=== PATIENT | female | born 1940 | race Caucasian/White ===

== ENCOUNTER 2016-09-12 15:57 | Outpatient (CLI) | payer MEDICARE, MEDICAID ==
[2016-09-12 16:24] VITALS: BP 113/70
== END 2016-09-12 16:35 | disposition home or self-care (01) ==
LOC: KA.IVTHER 15:57
PROVIDERS: ATTEND Internal Medicine Hematology & Oncology
DX: C56.9 Malignant neoplasm of unspecified ovary (principal); D70.1 Agranulocytosis secondary to cancer chemotherapy; T45.1X5A Adverse effect of antineoplastic and immunosuppressive drugs, initial encounter
CPT/HCPCS: 96372; J2505

== ENCOUNTER 2017-10-28 11:58 | Inpatient (IN) | payer MEDICARE, MEDICAID ==
[2017-10-28] MEDS ORDERED: Sodium Polystyrene Sulfonate 15 GM/60 ML Susp 60 ML Bot PO ONE (12:36)
[2017-10-28] MEDS ORDERED: Sodium Chloride 0.9% 1,000 ML ONE (12:49)
[2017-10-28] MEDS ORDERED: Ondansetron 4 MG Tab.DIS PO PRN (13:21)
[2017-10-28] MEDS ORDERED: Sodium Chloride 0.9% 1,000 ML IV SCH ×2 (13:30→13:53)
[2017-10-28] MEDS: Sodium Chloride 0.9% 1,000 ML IV SCH (14:54)
[2017-10-29] MEDS: Sodium Chloride 0.9% 1,000 ML IV SCH ×2 (01:39→20:28)
[2017-10-29] MEDS: Omeprazole 20 MG Cap.CR PO SCH (08:05)
[2017-10-29] MEDS: Levothyroxine 75 MCG Tab PO SCH (08:05)
[2017-10-29] MEDS ORDERED: predniSONE 5 MG Tab PO SCH (09:00)
[2017-10-29] MEDS ORDERED: Levothyroxine 75 MCG Tab PO SCH (09:00)
--- NOTE | 2017-10-29 09:52 | PCM.HP ---
H&P History of Present Illness - General Date of Service: 10/29/17 Admit Problem/Dx: Admission Diagnosis/Problem Admission Diagnosis/Problem Hyperkalemia Source of Information: Family, Old Records, Provider, RN History Limitations: Reports: No Limitations - History of Present Illness Initial Comments - Free Text/Narative: 77-year-old female who suffers from stage IV metastatic adenocarcinoma/terminal ovarian CA and is no longer taking chemotherapy is being followed closely by oncologist was admitted yesterday due to dehydration and electrolyte disturbance. Patient recently underwent paracentesis diagnosed on 09/03/2016 she initially refused placement of PleuRx catheter. She was seen yesterday by oncologist and recommended admission due to hyperkalemia, weakness and dehydration. has opted for palliative care as she is a DO NOT RESUSCITATE Left Feet Pain Score (Numeric/FACES): 8 - Related Data Allergies/Adverse Reactions: Allergies Allergy/AdvReac Type Severity Reaction Status Date / Time Penicillins Allergy Hives Verified 10/28/17 12:28 Home Medications: Home Meds Levothyroxine Sodium [Synthroid] 75 mcg PO DAILY 09/12/16 [History] Ondansetron [Zofran Odt] 8 mg PO TID PRN 10/08/16 [History] Omeprazole 20 mg PO DAILY 11/12/16 [History] Magnesium Chloride [Mag-64] 64 mg PO DAILY 04/08/17 [History] Dicyclomine [Bentyl] 10 - 20 mg PO QID PRN 10/08/17 [History] Furosemide [Lasix] 20 mg PO DAILY 10/08/17 [History] Polyethylene Glycol 3350 [MiraLAX] 17 gm PO DAILY PRN 10/08/17 [History] Prednisone [IJD: Prednisone] 5 mg PO DAILY 10/08/17 [History] Past Medical History HEENT History: Reports: Impaired Vision Cardiovascular History: Reports: Hypertension Gastrointestinal History: Reports: Colon Polyp, GERD Genitourinary History: Reports: None 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: Musculoskeletal History: Reports: None Endocrine/Metabolic History: Reports: Hypothyroidism Immunologic History: Reports: Immunosuppression Oncologic (Cancer) History: Reports: Ovarian - Infectious Disease History Infectious Disease History: Reports: Chicken Pox, Meningitis - Past Surgical History Cardiovascular Surgical History: Reports: None GI Surgical History: Reports: Colonoscopy Female Surgical History: Reports: None Endocrine Surgical History: Reports: None Musculoskeletal Surgical History: Reports: None Social & Family History - Family History HEENT: Reports: None Cardiac: Reports: Hypertension, Other (See Below) Other Cardiac Family History: Mother of heart disease also had hypertension Respiratory: Reports: None GI: Reports: Other (See Below) (Father however had ulcers) : Reports: None OBGYN: Reports: None Musculoskeletal: Reports: None Neurological: Reports: None, Seizure (Brother with seizure disorder) Psychiatric: Reports: None Endocrine/Metabolic: Reports: None Oncologic: Reports: Leukemia (Sr. of leukemia) - Tobacco Use Smoking Status *Q: Current Some Day Smoker Years of Tobacco use: 50 Packs/Tins Daily: 0 - Caffeine Use Caffeine Use: Reports: None - Recreational Drug Use Recreational Drug Use: No H&P Review of Systems - Review of Systems: Review Of Systems: See Below General: Reports: Malaise, Weakness. Denies: Fever, Night Sweats, Decreased Appetite HEENT: Denies: Vertigo Pulmonary: Denies: Shortness of Breath, Wheezing, Pleuritic Chest Pain, Cough Cardiovascular: Reports: Edema (Bilateral lower extremities edematous). Denies : Chest Pain Gastrointestinal: Reports: Diarrhea (Diarrhea last night likely due to Kayexalate). Denies: Abdominal Pain Genitourinary: Denies: Dysuria, Hematuria, Flank Pain Musculoskeletal: Reports: Foot Pain (Right foot pain and swollen and tender), Joint Pain, Joint Swelling Skin: Reports: No Symptoms Psychiatric: Denies: Confusion Neurological: Reports: Difficulty Walking (Difficult ambulation due to right foot pain), Gait Disturbance. Denies: Confusion Hematologic/Lymphatic: Reports: Anemia, Easy Bleeding Immunologic: Reports: No Symptoms Exam - Exam Exam: See Below - Vital Signs Vital Signs: Last Vital Signs Temp 98.3 F 10/29/17 06:01 Pulse 98 10/29/17 06:01 Resp 20 10/29/17 06:01 BP 87/56 L 10/29/17 06:01 Pulse Ox 94 L 10/29/17 06:01 Weight: 108 lb 3.2 oz - Exam Quality Assessment: No: Supplemental Oxygen General: Alert, Oriented, Cooperative. No: Mild Distress HEENT: Nares Patent Neck: No: JVD Lungs: Clear to Auscultation, Normal Respiratory Effort Cardiovascular: Regular Rate, Regular Rhythm GI/Abdominal Exam: Distended Back Exam: No: CVA Tenderness (L), CVA Tenderness (R) Extremities: Pedal Edema, Increased Warmth (Right first metatarsal painful swollen), Redness Neurological: Cranial Nerves Intact Neuro Extensive - Motor, Sensory, Reflexes: CN II-XII Intact Psychiatric: Alert, Normal Affect, Normal Mood - Patient Data Lab Results Last 24 hrs: Laboratory Results - last 24 hr 10/29/17 10/29/17 10/29/17 Range/Units 07:20 07:20 07:20 WBC 15.3 H (5.0-10.0) 10^3/uL RBC 3.00 L (3.80-5.50) 10^6/uL Hgb 9.0 L D (12.0-16.0) g/dL Hct 29.2 L (37.0-47.0) % MCV 97.6 H (82.0-92.0) fL MCH 30.2 (27.0-31.0) pg MCHC 30.9 L (32.0-36.0) g/dL RDW 20.3 H (11.5-14.5) % Plt Count 140 L D (150-300) 10^3/uL MPV 9.7 (7.4-10.4) fL Neut % (Auto) 84.6 H (50.0-70.0) % Lymph % (Auto) 3.9 L (20.0-40.0) % [place] % (Auto) 10.9 H (2.0-8.0) % Eos % (Auto) 0.2 L (1.0-3.0) % Baso % (Auto) 0.4 (0.0-1.0) % Neut # (Auto) 12.9 H (2.5-7.0) 10^3/uL Lymph # (Auto) 0.6 L (1.0-4.0) 10^3/uL [place] # (Auto) 1.7 H (0.1-0.8) 10^3/uL Eos # (Auto) 0.0 L (0.1-0.3) 10^3/uL Baso # (Auto) 0.1 (0.0-0.1) 10^3/uL Sodium 136 (136-145) mmol/L Potassium 5.3 (3.3-5.3) mmol/L Chloride 105 (98-115) mmol/L Carbon Dioxide 17.9 L (21.0-32.0) mmol/L BUN 71 H* (6-25) mg/dL Creatinine 2.19 H (0.51-1.17) mg/dL Est Cr Clr Drug Dosing 16.14 mL/min Estimated GFR (MDRD) 22 mL/min Glucose 96 (70-110) mg/dL Uric Acid 18.9 H (2.6-7.2) mg/dL Calcium 7.7 L (8.7-10.3) mg/dL Result Diagrams: 10/29/17 07:20 10/29/17 07:20 Problem List Initiated/Reviewed/Updated: Yes Orders Last 24hrs: Active Orders 24 hr Category Date Time Status Patient Status [ADT] Routine ADT 10/28/17 12:10 Ordered Oxygen Therapy [RC] PRN Care 10/28/17 12:31 Active Up ad Guerda [RC] ASDIRECTED Care 10/28/17 12:30 Active VTE/DVT Education [RC] PER UNIT ROUTINE Care 10/28/17 12:31 Active Vital Signs [RC] 0300,0700,1100,1500,1900,2300 Care 10/28/17 12:31 Active Consult to Physical Therapy [PT Evaluation and Cons 10/29/17 08:52 Active Treatment] [CONS] Routine Regular Diet [DIET] Diet 10/28/17 Lunch Active Levothyroxine Med 10/29/17 07:30 Active 75 mcg PO ACBREAKFAST Magnesium Chloride [Mag-64] Med 10/29/17 12:00 Active 64 mg PO 1200 Omeprazole Med 10/29/17 09:00 Active 20 mg PO DAILY Ondansetron [Zofran ODT] Med 10/28/17 13:21 Active 8 mg PO TID PRN Polyethylene Glycol 3350 [MiraLAX] Med 10/28/17 13:21 Active 17 gm PO DAILY PRN Sodium Chloride 0.9% [Normal Saline] 1,000 ml Med 10/28/17 12:45 Active IV ASDIRECTED predniSONE Med 10/29/17 09:00 Active 5 mg PO DAILY Resuscitation Status Routine Resus Stat 10/28/17 12:30 Ordered Medication Orders Sodium Chloride (Normal Saline) 1,000 mls @ 70 mls/hr IV ASDIRECTED [facility] Last Admin: 10/29/17 01:39 Dose: 70 mls/hr Infusion: 10/29/17 01:39 Dose: 70 mls/hr Admin: 10/28/17 14:54 Dose: 70 mls/hr Levothyroxine Sodium (Levothyroxine) 75 mcg PO ACBREAKFAST [facility] Last Admin: 10/29/17 08:05 Dose: 75 mcg Magnesium Chloride (Mag-64) 64 mg PO 1200 THU Omeprazole (Omeprazole) 20 mg PO DAILY [facility] Last Admin: 10/29/17 08:05 Dose: 20 mg Ondansetron HCl (Zofran Odt) 8 mg PO TID PRN PRN Reason: Nausea Polyethylene Glycol (Miralax) 17 gm PO DAILY PRN PRN Reason: Constipation Prednisone (Prednisone) 5 mg PO DAILY [facility] Last Admin: 10/29/17 08:05 Dose: 5 mg Assessment/Plan Comment:: HISTORY OF PRESENT ILLNESS 77-year-old female who suffers from stage IV metastatic adenocarcinoma/terminal ovarian CA (diagnosed 08/2016) --no longer taking chemotherapy and has being followed closely by oncologist was admitted yesterday due to dehydration, weakness and electrolyte disturbance mainly hyperkalemia. Patient recently underwent therapeutic paracentesis as she initially refused placement of PleuRx catheter. As of recent she and family has opted for palliative care as she is a DO NOT RESUSCITATE and no longer taking chemotherapy. Impression Gouty arthropathy, right foot, uric acid level elevated at 18, possibly due to loop diuretics and/or chemotherapy related, 40 mg of prednisone today and will likely taper thereafter. May benefit from renal dose allopurinol\--will order despite acute Hyperkalemia, improved however upper normal limit. Kayexalate 1x again today. Forego Tele. Renal insufficiency/Dehydration, prerenal, no ability to asses fraction excreted Na, continue with fluids, however bolus again today, taking by mouth also Weakness, PT consultation. Limited exam likely 2/2 gouty condition Anemia, microcytic, anisocytosis, ACD/chemo induced. Other chronic medical conditions HTN HLD Hypothyroidism Smoker with relapses Overall Plan. Cont acute care status, patient likely will request discharge to home soon despite family concerns, PT to eval today if all possible for assistence in developing overall plan. Family concerns regarding their inability to care for ADS, bathing, toileting needs that are sure to come soon. Social Service C/S. Discussed options i.e. private pay hospice in hosp. Swing Bed if qualifying stay, , Home Hospice however family concerns regarding limited home visits.
[2017-10-29] MEDS ORDERED: Acetaminophen/HYDROcodone 325-5 MG Tab PO PRN (10:00)
[2017-10-29] MEDS ORDERED: Sodium Polystyrene Sulfonate 15 GM/60 ML Susp 60 ML Bot PO ONE (10:00)
[2017-10-29] MEDS: Allopurinol 100 MG Tab PO SCH (11:15)
[2017-10-29] MEDS ORDERED: predniSONE 20 MG Tab PO ONE (12:00)
[2017-10-29] MEDS: Magnesium Chloride 64 MG Tab.ER PO SCH (18:14)
[2017-10-29] MEDS ORDERED: Acetaminophen 325 MG Tab PO PRN (20:31)
[2017-10-30] MEDS: Allopurinol 100 MG Tab PO SCH (08:17)
[2017-10-30] MEDS: Levothyroxine 75 MCG Tab PO SCH (08:17)
[2017-10-30] MEDS: Omeprazole 20 MG Cap.CR PO SCH (08:17)
[2017-10-30] MEDS: Sodium Chloride 0.9% 1,000 ML IV SCH ×2 (11:00→22:54)
[2017-10-30] MEDS ORDERED: oxyCODONE 5 MG Tab PO PRN (12:31)
[2017-10-30] MEDS: Magnesium Chloride 64 MG Tab.ER PO SCH (12:54)
[2017-10-30] MEDS: Polyethylene Glycol 3350 Powder 17 GM Packet PO PRN (14:59)
[2017-10-30] MEDS ORDERED: 20% Ketoprofen 12 GM, 3% Menthol 1.8 GM & 8% Trolamine Salicylate 46.2 GM TOP SCH ×3 (18:00)
[2017-10-30] MEDS ORDERED: Ceres/Mineral Oil/Petrolatum/Wool Alcohol Cream 57 GM Tube TOP PRN (18:11)
[2017-10-30] MEDS ORDERED: 20% Ketoprofen 12 GM, 3% Menthol 1.8 GM & 8% Trolamine Salicylate 46.2 GM TOP PRN ×3 (18:15)
--- NOTE | 2017-10-30 21:27 | PCM.PN ---
- General Info Date of Service: 10/30/17 Subjective Update: Ms. Moreno reports feeling "OK" this morning. Improvement in foot pain since yesterday. Abdominal distension moderate without significant respiratory difficulty or abdominal pain. She describes mood as frustrated about the cancer. Feels she is drinking fluids well today. Sons at bedside without any concerns today. No nursing concerns. - Patient Data Vitals - Most Recent: Last Vital Signs Temp 36.7 C 10/30/17 15:00 Pulse 99 10/30/17 15:00 Resp 18 10/30/17 15:00 BP 85/55 L 10/30/17 15:00 Pulse Ox 98 10/30/17 15:00 Weight - Most Recent: 49.079 kg I&O - Last 24 Hours: Intake & Output 10/30/17 10/30/17 10/30/17 06:59 14:59 22:59 Intake Total 1004 1230 Output Total 300 450 Balance 704 780 Lab Results Last 24 Hours: Laboratory Results - last 24 hr 10/30/17 10/30/17 Range/Units 07:10 07:10 WBC 14.9 H (5.0-10.0) 10^3/uL RBC 2.74 L (3.80-5.50) 10^6/uL Hgb 8.2 L (12.0-16.0) g/dL Hct 27.2 L (37.0-47.0) % MCV 99.2 H (82.0-92.0) fL MCH 29.9 (27.0-31.0) pg MCHC 30.1 L (32.0-36.0) g/dL RDW 21.8 H (11.5-14.5) % Plt Count 127 L (150-300) 10^3/uL MPV 9.8 (7.4-10.4) fL Neut % (Auto) 88.4 H (50.0-70.0) % Lymph % (Auto) 2.8 L (20.0-40.0) % [place] % (Auto) 8.6 H (2.0-8.0) % Eos % (Auto) 0.2 L (1.0-3.0) % Baso % (Auto) 0.0 (0.0-1.0) % Neut # (Auto) 13.2 H (2.5-7.0) 10^3/uL Lymph # (Auto) 0.4 L (1.0-4.0) 10^3/uL [place] # (Auto) 1.3 H (0.1-0.8) 10^3/uL Eos # (Auto) 0.0 L (0.1-0.3) 10^3/uL Baso # (Auto) 0.0 (0.0-0.1) 10^3/uL Sodium 136 (136-145) mmol/L Potassium 4.7 (3.3-5.3) mmol/L Chloride 106 (98-115) mmol/L Carbon Dioxide 17.9 L (21.0-32.0) mmol/L BUN 65 H* (6-25) mg/dL Creatinine 2.07 H (0.51-1.17) mg/dL Est Cr Clr Drug Dosing 17.07 mL/min Estimated GFR (MDRD) 23 mL/min Glucose 106 (70-110) mg/dL Calcium 7.5 L (8.7-10.3) mg/dL Total Bilirubin 0.3 (0.2-1.0) mg/dL AST 43 H (15-37) U/L ALT 29 (12-78) U/L Alkaline Phosphatase 233 H (46-116) IU/L Total Protein 4.5 L (6.4-8.2) g/dL Albumin 1.56 L (3.00-4.80) g/dL Med Orders - Current: Current Medications Acetaminophen (Tylenol) 650 mg PO Q4H PRN PRN Reason: pain or fever Last Admin: 10/29/17 21:13 Dose: 650 mg Allopurinol (Zyloprim) 200 mg PO DAILY [facility] Last Admin: 10/30/17 08:17 Dose: 200 mg Ketoprofen 12 gm/ Menthol 1.8 gm/ Trolamine Salicylate 46.2 gm 0 gm TOP BID PRN PRN Reason: itching Last Admin: 10/30/17 18:30 Dose: 1 lynda Sodium Chloride (Normal Saline) 1,000 mls @ 70 mls/hr IV ASDIRECTED [facility] Last Admin: 10/30/17 11:00 Dose: 70 mls/hr Levothyroxine Sodium (Levothyroxine) 75 mcg PO ACBREAKFAST [facility] Last Admin: 10/30/17 08:17 Dose: 75 mcg Magnesium Chloride (Mag-64) 64 mg PO 1200 THU Last Admin: 10/30/17 12:54 Dose: 64 mg Multi-Ingredient Ointment (Eucerin Creme) 0 gm TOP BID PRN PRN Reason: itching Last Admin: 10/30/17 18:30 Dose: 1 applic Omeprazole (Omeprazole) 20 mg PO ACBREAKFAST [facility] Ondansetron HCl (Zofran Odt) 8 mg PO TID PRN PRN Reason: Nausea Last Admin: 10/29/17 12:43 Dose: 8 mg Oxycodone HCl (Oxycodone) 5 mg PO Q4H PRN PRN Reason: Pain Last Admin: 10/30/17 14:52 Dose: 5 mg Polyethylene Glycol (Miralax) 17 gm PO DAILY PRN PRN Reason: Constipation Last Admin: 10/30/17 14:59 Dose: 17 gm Prednisone (Prednisone) 5 mg PO DAILY [facility] Last Admin: 10/29/17 08:05 Dose: 5 mg Discontinued Medications Hydrocodone Bitart/Acetaminophen ([place] 325-5 Mg) 1 tab PO Q3H PRN PRN Reason: Pain Last Admin: 10/29/17 11:02 Dose: 1 tab Ketoprofen 12 gm/ Menthol 1.8 gm/ Trolamine Salicylate 46.2 gm 0 gm TOP BID [facility] Last Admin: 10/30/17 18:29 Dose: Not Given Sodium Chloride (Normal Saline) Confirm Administered Dose 1,000 mls @ as directed .ROUTE .STK-MED ONE Stop: 10/28/17 12:50 Last Admin: 10/28/17 13:46 Dose: Not Given Sodium Chloride (Normal Saline) 1,000 mls @ 250 mls/hr IV ONETIME THU Stop: 10/28/17 15:00 Sodium Chloride (Normal Saline) 250 mls @ 250 mls/hr IV ONETIME THU Stop: 10/28/17 15:00 Last Admin: 10/28/17 14:01 Dose: 250 mls/hr Sodium Chloride (Normal Saline) 600 mls @ 999 mls/hr IV .BOLUS ONE Stop: 10/29/17 13:22 Last Admin: 10/29/17 13:43 Dose: 999 mls/hr Levothyroxine Sodium (Levothyroxine) 75 mcg PO DAILY THU Omeprazole (Omeprazole) 20 mg PO DAILY THU Last Admin: 10/30/17 08:17 Dose: 20 mg Prednisone (Prednisone) 40 mg PO ONETIME ONE Stop: 10/29/17 12:01 Last Admin: 10/29/17 16:17 Dose: 40 mg Sodium Polystyrene Sulfonate (Kayexalate) 15 gm PO ONETIME ONE Stop: 10/28/17 12:37 Last Admin: 10/28/17 13:28 Dose: 15 gm Sodium Polystyrene Sulfonate (Kayexalate) 15 gm PO ONETIME ONE Stop: 10/29/17 10:01 Last Admin: 10/29/17 11:13 Dose: 15 gm - Exam Physical Findings Comments:: GENERAL: Chronically ill-appearing elderly female sitting on side of hospital bed in no acute distress. HEENT: Normocephalic, atraumatic. Conjunctiva clear. Nares patent without discharge. Mucous membranes moist, posterior pharynx unremarkable. NECK: Supple, no masses. CV: Regular rate and rhythm. 2+ radial pulses. PULMONARY: Normal effort, clear to auscultation bilaterally, no wheezes, rales, or rhonchi. ABDOMEN: Positive bowel sounds, moderate ascites, nontender,. EXTREMITIES: Bilateral lower extremity edema to knees bilaterally most notable of ankles. MUSCULOSKELETAL: Moves all extremities well. NEUROLOGICAL: No obvious deficits. DERMATOLOGIC: No rashes or suspicious lesions in exposed areas. PSYCHIATRIC: Alert, interactive, mildly depressed affect. - Problem List Review Problem List Initiated/Reviewed/Updated: Yes - My Orders Last 24 Hours: My Active Orders 10/29/17 20:31 Acetaminophen [Tylenol] 650 mg PO Q4H PRN 10/30/17 12:31 oxyCODONE 5 mg PO Q4H PRN 10/30/17 18:11 Harmony/Min Oil/Cara/Wool Alcoh [Eucerin Creme] 0 gm TOP BID PRN 10/30/17 18:15 Ketoprofen 12 gm Menthol 1.8 gm Trolamine Salicylate/Aloe Vera [Aspercreme 10%] 46.2 gm TOP BID - Plan Plan:: 77-year-old female who suffers from stage IV metastatic adenocarcinoma/terminal ovarian CA (diagnosed 08/2016) who is no longer taking chemotherapy and has being followed closely by oncologist was admitted 10/28/17 due to dehydration, weakness and electrolyte disturbance. Patient has recently also underwent several therapeutic paracenteses. As of recent, she and family has opted for palliative care as she is a DO NOT RESUSCITATE and no longer taking chemotherapy. # Acute kidney injury on chronic kidney disease: Prerenal, due to dehydration. Continue IVF. # Hyperkalemia, resolved # Acute gouty arthropathy, right foot: Uric acid level elevated at 18, likely due to loop diuretics and/or chemotherapy related. Continue prednisone and allopurinol. # Anemia, microcytic, anisocytosis: ACD/chemo induced. Stable. # Metastatic ovarian cancer: Palliative care at this point since chemotherapy discontinued due to lack of efficacy and ongoing progression of metastatic disease. # Malignant ascites: Stable without significant symptoms at this time. Repeat therapeutic paracentesis in the future if progression of ascites and related symptoms. # Debility: Continue per PT recommendations. Chronic conditions: # Hypothyroidism: Continue levothyroxine. # GERD: Continue omeprazole. # Tobacco dependence: Denies need for nicotine replacement at this time. Hospitalization details: # FEN: NS @ 70cc/hr. Electrolytes normalized. Regular diet. # PPX: Enoxaparin for DVT ppx. # Code status: DNR/DNI. # Emergency contact: Lon, who were updated at bedside on rounds. # Disposition: Continue inpatient while ensuring stabilization of electrolytes as well as clinical status; also continue physical therapy. Discussion with social work and home health and hospice nurse today is planned and further plans for discharge, likely tomorrow, will be made at that time; appreciate assistance with disposition planning for this patient.
[2017-10-31 06:31] VITALS: BP 78/42
[2017-10-31] MEDS: Levothyroxine 75 MCG Tab PO SCH (07:28)
[2017-10-31] MEDS ORDERED: Omeprazole 20 MG Cap.CR PO SCH (07:30)
[2017-10-31] MEDS ORDERED: predniSONE 20 MG Tab PO SCH (08:00)
[2017-10-31] MEDS: Allopurinol 100 MG Tab PO SCH (08:58)
[2017-10-31] MEDS: Polyethylene Glycol 3350 Powder 17 GM Packet PO PRN (09:02)
[2017-10-31] MEDS ORDERED: Bisacodyl 10 MG Supp RECTAL ONE (10:09)
[2017-10-31] MEDS: Magnesium Chloride 64 MG Tab.ER PO SCH (12:29)
--- NOTE | 2017-11-02 08:17 | DISCH ---
DISCHARGE DIAGNOSIS: 1. Adenocarcinoma. 2. Terminal ovarian cancer, stage IV. 3. History of dehydration, weakness, and electrolyte disturbance. HISTORY: The patient is a 77-year-old female patient who has been discharged from [facility] to her home setting at her request. She has met with the Social Service Department and all options were given to her for home care, swing bed, and hospice. Her sons are in attendance and are requesting to attempt a trial independent status at home. Son plans to be with her over the course of the next week. She was receiving Oncology Services, chemotherapy has recently been discontinued and Palliative Care initiated. She has no specific pain or discomfort presently. She has been managed with her oral pain medications. She does have intermittent bloating and has received several therapeutic paracentesis over the course of the past one month. Remainder of her history does include acute kidney injury, hyperkalemia, acute gout which she is receiving a prednisone series for and is noting improvement. Remainder of her chronic conditions include hypothyroidism, GERD, and tobacco dependence. Otherwise, no significant complications through the course of her hospitalization. DISCHARGE MEDICATIONS: Her discharge medications will include: 1. Prednisone burst with a gout. 2. Allopurinol. 3. Topical medications for itching. 4. Levothyroxine. 5. Magnesium. 6. Omeprazole. 7. Zofran. 8. Oxycodone. 9. MiraLax. PHYSICAL EXAMINATION: HEENT: Head is normocephalic. Conjunctiva is clear. Mucosa is pink and moist. NECK: Supple without rigidity. RESPIRATORY: Lungs are clear to auscultation. CARDIOVASCULAR: Heart rate and rhythm is regular. S1 and S2. ABDOMEN: Nontender presently. She does have a moderate ascites. Bowel sounds are present. EXTREMITIES: Lower extremities reveal edema. Two below the knee Ra wraps are present. DISCHARGE INSTRUCTIONS: Her discharge instructions was provided to her. Her family will be providing her supervision and assist with her ADLs in the home setting. She was encouraged to notify if she needs any further assistance. She will be following up on Thursday with her primary care provider for further evaluation. If she is successful in the home setting, [facility] or Hospice Services will be considered. /[id number]/MODL MTDD
== END 2017-10-31 13:00 | disposition home or self-care (01) | DRG 640 ==
LOC: KA.MS 12:10
PROVIDERS: ADMIT Nurse Practitioner Family; ATTEND Family Medicine
DX: E86.0 Dehydration (principal); D61.1 Drug-induced aplastic anemia; C56.9 Malignant neoplasm of unspecified ovary; N17.9 Acute kidney failure, unspecified; R18.0 Malignant ascites; D63.8 Anemia in other chronic diseases classified elsewhere; Z51.5 Encounter for palliative care; Z66 Do not resuscitate; R53.1 Weakness; I12.9 Hypertensive chronic kidney disease with stage 1 through stage 4 chronic kidney disease, or unspecified chronic kidney disease; N18.9 Chronic kidney disease, unspecified; E87.8 Other disorders of electrolyte and fluid balance, not elsewhere classified; E87.5 Hyperkalemia; M10.9 Gout, unspecified; K21.9 Gastro-esophageal reflux disease without esophagitis; E03.9 Hypothyroidism, unspecified; E78.5 Hyperlipidemia, unspecified; F17.200 Nicotine dependence, unspecified, uncomplicated; Z88.0 Allergy status to penicillin; Z79.899 Other long term (current) drug therapy
CPT/HCPCS: 36415; 80048; 80053; 84550; 85025; 97162-GP; A9270-GY; J7030

== ENCOUNTER 2017-11-02 14:15 | Inpatient (IN) | payer OTHER, MEDICAID ==
[2017-11-02] MEDS ORDERED: Loperamide 2 MG Cap PO ONE (14:58)
[2017-11-02] MEDS ORDERED: Ceres/Mineral Oil/Petrolatum/Wool Alcohol Cream 57 GM Tube TOP PRN (16:05)
[2017-11-02] MEDS ORDERED: KETOPROFEN TOP PRN (16:05)
[2017-11-02] MEDS ORDERED: Trolamine Salicylate/Aloe Vera 10% Crm 85 GM Tube TOP PRN (16:05)
[2017-11-02] MEDS ORDERED: ACETAMINOPHEN 325 MG PO PRN (16:05)
[2017-11-02] MEDS ORDERED: LOPERAMIDE 2 MG PO PRN (17:30)
[2017-11-02] MEDS ORDERED: ACETAMINOPHEN 650 MG PO PRN (18:00)
[2017-11-02] MEDS: [UNRECOGNIZED DRUG - SUPPLY] PO PRN (18:48)
[2017-11-03] MEDS ORDERED: predniSONE 10 MG Tab PO ONE (08:00)
[2017-11-03] MEDS: [UNRECOGNIZED DRUG - SUPPLY] PO PRN (08:01)
[2017-11-03] MEDS: Levothyroxine 75 MCG Tab PO SCH (08:03)
[2017-11-03] MEDS: Omeprazole 20 MG Cap.CR PO SCH (08:03)
[2017-11-03] MEDS: Magnesium Chloride 64 MG Tab.ER PO SCH (08:04)
[2017-11-03] MEDS: FUROSEMIDE 20 MG PO SCH (08:04)
[2017-11-03] MEDS: Allopurinol 100 MG Tab PO SCH (08:05)
[2017-11-03] MEDS: OXYCODONE 5 MG PO PRN (08:05)
[2017-11-03] MEDS ORDERED: OXYCODONE 5 MG PO SCH ×2 (11:15→16:00)
[2017-11-03] MEDS: DICYCLOMINE 10 MG PO PRN (12:06)
[2017-11-03] MEDS: ONDANSETRON 8 MG PO PRN (18:20)
[2017-11-03] MEDS: OXYCODONE 5 MG PO SCH (21:42)
[2017-11-04] MEDS: DICYCLOMINE 10 MG PO PRN (01:30)
[2017-11-04] MEDS: OXYCODONE 5 MG PO PRN ×2 (01:30→09:57)
[2017-11-04 07:06] VITALS: BP 81/41
[2017-11-04] MEDS: OXYCODONE 5 MG PO SCH ×4 (07:40→23:11)
[2017-11-04] MEDS: ONDANSETRON 8 MG PO PRN ×2 (08:16→17:19)
[2017-11-04] MEDS: Omeprazole 20 MG Cap.CR PO SCH (09:06)
[2017-11-04] MEDS: Levothyroxine 75 MCG Tab PO SCH (09:06)
[2017-11-04] MEDS ORDERED: HYOSCYAMINE 0.125 MG BUCCAL PRN (10:43)
[2017-11-04] MEDS ORDERED: ACETAMINOPHEN 650 MG RECTAL PRN (10:45)
[2017-11-04] MEDS ORDERED: MORPHINE SULFATE BUCCAL PRN (10:55)
[2017-11-04] MEDS: Allopurinol 100 MG Tab PO SCH (11:01)
[2017-11-04] MEDS: Magnesium Chloride 64 MG Tab.ER PO SCH (11:01)
[2017-11-04] MEDS: HALOPERIDOL BUCCAL PRN ×2 (12:04→15:11)
[2017-11-04] MEDS: FUROSEMIDE 20 MG PO SCH (12:04)
[2017-11-04] MEDS ORDERED: MORPHINE SULFATE BUCCAL SCH (14:00)
[2017-11-04] MEDS ORDERED: OXYCODONE 5 MG PO PRN (15:57)
[2017-11-04] MEDS ORDERED: LORAZEPAM 1 MG BUCCAL PRN (15:59)
--- NOTE | 2017-11-05 09:53 | PCM.DCSUM1 ---
Discharge Summary - Discharge Data Discharge Date: 11/04/17 Discharge Disposition: 20 Condition: Critical - Patient Summary/Data Consults: Consultations 11/02/17 14:49 Consult to Marketing Database Coordinator [CONS] Routine Hospital Course: Patient had significant weakness decrease oral intake decreased urinary output with nausea during her hospital stay. - Discharge Plan Home Medications: Home Meds Levothyroxine Sodium [Synthroid] 75 mcg PO DAILY 09/12/16 [History] Omeprazole 20 mg PO DAILY 11/12/16 [History] Magnesium Chloride [Mag-64] 64 mg PO DAILY 04/08/17 [History] Dicyclomine [Bentyl] 10 - 20 mg PO QID PRN 10/08/17 [History] Furosemide [Lasix] 20 mg PO DAILY 10/08/17 [History] Prednisone [IJD: Prednisone] 5 mg PO DAILY 10/08/17 [History] Acetaminophen [Tylenol] 650 mg PO Q4H PRN tablet 10/31/17 [Rx] Allopurinol [Zyloprim] 200 mg PO DAILY #60 tablet 10/31/17 [Rx] Ketoprofen 12 gm TOP BID PRN powder 10/31/17 [Rx] Menthol 1.8 gm TOP BID PRN jar 10/31/17 [Rx] Ondansetron [Zofran Odt] 8 mg PO TID PRN #90 tab.dis 10/31/17 [Rx] Trolamine Salicylate/Aloe Vera [Aspercreme 10%] 46.2 gm TOP BID PRN tube [Rx] oxyCODONE 5 mg PO Q4H PRN #60 tablet 10/31/17 [Rx] [place]/Min Oil/Cara/Wool Alcoh [Eucerin Creme] 1 gm TOP BID PRN 11/02/17 [ History] - Discharge Summary/Plan Comment DC Time >30 min.: No Discharge Summary/Plan Comment: History, 77-year-old female who was recently discharged from acute care due to dehydration and hyperkalemia was evaluated [facility] for ongoing weakness. 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 Due to weakness and diarrhea and her terminal condition patient was admitted into hospice care at [facility]. She was a DNR comfort care. She got progressively weak, decreased urinary output, with decreased blood pressure. Patient did family was notified. Final diagnosis Stage IV ovarian cancer Weakness Renal failure - Patient Data Vitals - Most Recent: Last Vital Signs Temp 97.1 F 11/04/17 07:00 Pulse 90 11/04/17 07:00 Resp 20 11/04/17 07:00 BP 81/41 L 11/04/17 07:00 Pulse Ox 98 11/03/17 06:56 Weight - Most Recent: 120 lb 14.4 oz I&O - Last 24 hours: Intake & Output 11/04/17 11/05/17 11/05/17 22:59 06:59 14:59 Intake Total 50 Output Total 0 Balance 50 Med Orders - Current: Current Medications Discontinued Medications Allopurinol (Zyloprim) 200 mg PO DAILY [facility] Last Admin: 11/04/17 11:01 Dose: Not Given Levothyroxine Sodium (Levothyroxine) 75 mcg PO ACBREAKFAST [facility] Last Admin: 11/04/17 09:06 Dose: Not Given Loperamide HCl (Imodium) 4 mg PO ONETIME ONE Stop: 11/02/17 14:59 Last Admin: 11/02/17 16:26 Dose: 4 mg Magnesium Chloride (Mag-64) 64 mg PO DAILY [facility] Last Admin: 11/04/17 11:01 Dose: Not Given Multi-Ingredient Ointment (Eucerin Creme) 1 gm TOP BID PRN PRN Reason: itching Last Admin: 11/02/17 23:23 Dose: 1 applic Omeprazole (Omeprazole) 20 mg PO ACBREAKFAST [facility] Last Admin: 11/04/17 09:06 Dose: Not Given Hospice Acetaminophen 325 Mg Tab 2 each PO Q4H PRN PRN Reason: pain or fever Hospice (Ondansetron 8 Mg Odt) 1 each PO TID PRN PRN Reason: Nausea Last Admin: 11/04/17 17:19 Dose: 1 each Hospice (Oxycodone 5 Mg Tab) 1 each PO Q4H PRN PRN Reason: Pain Last Admin: 11/04/17 09:57 Dose: 1 each Hospice Loperamide 2 Mg Caplet 1 each PO Q4H PRN PRN Reason: Diarrhea Hospice Dicyclomine 10 Mg Cap 10 each PO QID PRN PRN Reason: Abdominal Pain Last Admin: 11/04/17 01:30 Dose: 10 each Hospice Acetaminophen Er 650 Mg Tab 1 each PO Q4H PRN PRN Reason: pain or fever Hospice J[place]-Stir ([place]) 1 each PO ASDIRECTED PRN PRN Reason: dry mouth Last Admin: 11/03/17 08:01 Dose: 1 each Hospice (Furosemide 20 Mg Tab) 2 each PO DAILY [facility] Stop: 11/05/17 12:00 Last Admin: 11/04/17 12:04 Dose: 2 each Hospice (Furosemide 20 Mg Tab) 1 each PO DAILY [facility] Stop: 11/12/17 11:00 *Hospice Oxycodone (5mg Tab) 1 each PO Q8H [facility] Last Admin: 11/03/17 13:28 Dose: Not Given *Hospice Oxycodone (5mg Tab) 1 each PO Q8H [facility] Last Admin: 11/03/17 16:00 Dose: Not Given *Hospice Oxycodone (5mg Tab) 1 each PO TID@0600,1400,2200 [facility] Last Admin: 11/04/17 07:40 Dose: Not Given Hospice Levsin 0 (.125 Mg Buccal) 1 each BUCCAL Q4H PRN PRN Reason: Anxiety Hospice Tylenol (Suppository 650 Mg) 1 each RECTAL Q4H PRN PRN Reason: Fever *Hospice Haloperidol 2 Mg/Ml 0.5 Mg Buccal 1 each BUCCAL Q6H PRN PRN Reason: restlessness/nausea Last Admin: 11/04/17 15:11 Dose: 1 each Hospice Morphine Sulfate 20 Mg/Ml 5mg 5 each BUCCAL Q8H [facility] Last Admin: 11/04/17 14:13 Dose: 5 each Hospice Morphine (Sulfate 20mg/Ml 5mg) 5 each BUCCAL ASDIRECTED PRN PRN Reason: Pain/SOB *Hospice Oxycodone (5mg Tab) 1 each PO Q4H [facility] Last Admin: 11/04/17 23:11 Dose: 1 each Hospice (Oxycodone 5mg Tab) 1 each PO Q3H PRN PRN Reason: PAIN Hospice Lorazepam Intensol 1mg (0.5ml) 1 each BUCCAL Q8H PRN PRN Reason: Agitation Prednisone (Prednisone) 10 mg PO ONETIME@0800 ONE Stop: 11/03/17 08:01 Last Admin: 11/03/17 08:04 Dose: 10 mg Trolamine Salicylate (Aspercreme 10%) 0 gm TOP BID PRN PRN Reason: itching
[2017-11-06] MEDS ORDERED: FUROSEMIDE 20 MG PO SCH (09:00)
== END 2017-11-04 23:35 | disposition expired | DRG 948 ==
LOC: KA.MS 14:15
PROVIDERS: ADMIT Nurse Practitioner Family; ATTEND Family Medicine
DX: R53.1 Weakness (principal); C56.2 Malignant neoplasm of left ovary; R18.0 Malignant ascites; Z51.5 Encounter for palliative care; Z66 Do not resuscitate; R11.0 Nausea; R19.7 Diarrhea, unspecified; R53.83 Other fatigue; E86.0 Dehydration; I95.9 Hypotension, unspecified; N19 Unspecified kidney failure; I10 Essential (primary) hypertension; E87.6 Hypokalemia; E78.00 Pure hypercholesterolemia, unspecified; E03.9 Hypothyroidism, unspecified; M10.9 Gout, unspecified; F17.210 Nicotine dependence, cigarettes, uncomplicated; L40.9 Psoriasis, unspecified; D70.1 Agranulocytosis secondary to cancer chemotherapy; T45.1X5A Adverse effect of antineoplastic and immunosuppressive drugs, initial encounter; D64.81 Anemia due to antineoplastic chemotherapy; D89.9 Disorder involving the immune mechanism, unspecified; G47.9 Sleep disorder, unspecified; Z88.0 Allergy status to penicillin; Z79.52 Long term (current) use of systemic steroids; Z79.899 Other long term (current) drug therapy; Z79.891 Long term (current) use of opiate analgesic
CPT/HCPCS: A9270-GY